=== PATIENT | male | born 1985 | race Caucasian/White ===

== ENCOUNTER 2017-11-06 22:26 | Emergency (ER) | payer SELFPAY ==
[~2017-11-06] VITALS: Ht 193 cm; Wt 78.9 kg
[~2017-11-06 22:26] MED LIST: AMOX500T PO; Z.0.NO CURRENT MEDS
[2017-11-06 22:39] VITALS: BP 146/90; PULSE 75; RESP 20; TEMP 100; O2SAT 98
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
[2017-11-06 23:40] VITALS: BP 144/76; PULSE 70; RESP 18; O2SAT 100
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
[2017-11-07] MEDS ORDERED: IBUPROFEN 800 MG TAB PO ONE
[2017-11-07] MEDS ORDERED: ONDANSETRON ODT 4 MG TAB PO ONE
[2017-11-07] MEDS ORDERED: oxyCODONE/ACETAMINOPHEN 5 MG/325 MG TAB PO ONE
[2017-11-07] MEDS ORDERED: IBUP1TAB7 PO (00:09)
[2017-11-07] MEDS ORDERED: PERC5TAB12 PO (00:09)
[2017-11-07] MEDS ORDERED: ZOFR4TAB3 SL (00:09)
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
[2017-11-07] MEDS ORDERED: TETANUS/DIPHTHERIA TOXOID ADULT 0.5 ML VIAL IM ONE (00:45)
[2017-11-07 00:54] VITALS: BP 137/66
== END 2017-11-07 01:02 | disposition home or self-care (01) ==
LOC: PHED 22:26
DX: S42.402A Unspecified fracture of lower end of left humerus, initial encounter for closed fracture (principal); V86.56XA Driver of dirt bike or motor/cross bike injured in nontraffic accident, initial encounter; Y93.I9 Activity, other involving external motion; F41.9 Anxiety disorder, unspecified; F32.9 Major depressive disorder, single episode, unspecified; F43.10 Post-traumatic stress disorder, unspecified; F17.200 Nicotine dependence, unspecified, uncomplicated
CPT/HCPCS: 29105; 73080; 73090; 90471